=== PATIENT | female | born 1980 | race Hispanic/Latino ===

== ENCOUNTER 2022-08-27 17:46 | Emergency (ER) | payer OTHER ==
[~2022-08-27] VITALS: Ht 157.5 cm; Wt 83.9 kg
[2022-08-27 18:25] VITALS: BP 124/93
[2022-08-27] MEDS ORDERED: TRAM50TA4 PO (20:48)
[2022-08-27] MEDS ORDERED: KETOROLAC 30MG VIAL (30MG/ML) IM ONE (21:00)
== END 2022-08-27 21:00 | disposition home or self-care (01) ==
LOC: EDH 17:46
DX: S62.637A Displaced fracture of distal phalanx of left little finger, initial encounter for closed fracture (principal); X58.XXXA Exposure to other specified factors, initial encounter; Y93.89 Activity, other specified; Y92.89 Other specified places as the place of occurrence of the external cause; Y99.8 Other external cause status
CPT/HCPCS: 99283; 73140; 96372; J1885